=== PATIENT | male | born 1960 | race Caucasian/White ===

== ENCOUNTER 2018-12-30 10:08 | Outpatient (CLI) | payer BC ==
--- NOTE | 2018-12-30 10:53 | RAD ---
FOUR VIEWS LUMBAR SPINE: HISTORY: Radiculopathy. Spinal stenosis. FINDINGS: AP, weight-bearing lateral neutral, weight-bearing flexion, weight-bearing extension demonstrate 5 larry mbar-type vertebrae. Lumbar spine vertebral body height is maintained. No fracture. Disc space heights are preserved. Spondylolisthesis: L4 upon L5: Neutral position: 1.7 mm of anterolisthesis; flexion 5 mm of anterolisthesis, extension 2.3 mm of ant erolisthesis. No associated pars defects. IMPRESSION: Grade 1 anterolisthesis of L4 upon L5 worsening with flexion. Transcribed Date/Time: 12/30/2018 11:01 AM
--- NOTE | 2018-12-30 11:56 | MRI ---
MR the lumbar spine without contrast: 12/30/2018 History: Low back pain with bilateral leg numbness and pain COMPARISON: None. TECHNIQUE: Multiplanar multisequence MR images were obtained of lumbar spine without IV contrast FINDINGS: On the basis of 5 lumbar type vertebral bodies, conus medullaris terminates at theT12 level. Sagittal STIR imaging demonstrates no focal area of osseous marrow edema. T12-L1:Intervertebral disc height and signal intensity within normal limits with no significant centr al canal or neural foraminal stenosis. L1-2:Intervertebral disc height and signal intensity within normal limits with no significant central canal or neural foraminal stenosis. L2-3:Mild bilateral facet hypertrophy. Intervertebral disc height and signal intensity within normal limits with no significant central canal or neural foraminal stenosis. L3-4:Intervertebral disc height and signal intensity within normal limits. No significant central can al or neural foraminal stenosis. L4-5:There is disc space narrowing and disc desiccation with mild disc bulge and small central disc p rotrusion. There is moderate bilateral facet hypertrophy with hypertrophy of the ligamentum flavum. This causes a moderate degree of central canal stenosis. Anterolisthesis at L4-5 noted measuring 4 mm . Mild neural foraminal stenosis on the right. No left neural foraminal stenosis. L5-S1:There is disc space narrowing with disc desiccation and mild disc bulge. Mild associated centra l canal stenosis. Mild bilateral facet hypertrophy with no significant neural foraminal stenosis. Image retroperitoneal structures demonstrateno acute findings. IMPRESSION: Multilevel lower lumbar spine degenerative change, most prominent at the L4-5 level.
== END 2018-12-30 10:09 | disposition home or self-care (01) ==
LOC: BICMRI 10:08
PROVIDERS: ATTEND Physician Assistant Surgical
DX: M47.26 Other spondylosis with radiculopathy, lumbar region (principal); M54.5 Low back pain; M48.061 Spinal stenosis, lumbar region without neurogenic claudication; M43.16 Spondylolisthesis, lumbar region
CPT/HCPCS: 72120; 72148

== ENCOUNTER 2019-02-22 08:18 | Day surgery (SDC) | payer BC ==
[2019-02-21 11:56] VITALS: BMI 25.5
[2019-02-22 09:21] LABS: #Lymphocytes 1.3 thou/uL (1.20-3.40); #Monocytes 0.5 thou/uL (0.11-0.59); %Basophils 0.2 % (0.0-1.0); %Eosinophils 0.8 % (0.0-10.0); %Lymphocytes 26.5 % (21.0-51.0); %Monocytes 10.5 % (0.0-10.0); %Neutrophils 61.9 % (42.0-75.0); Hemoglobin 15.7 g/dL (14.0-18.0); Mean Corpuscular HGB CONC 34.8 g/dL (32.0-36.0); Mean Corpuscular Hemoglobin 30.6 pg (27.0-31.0); Mean Corpuscular Volume 88.1 fL (78.0-98.0); Mean Platelet Volume 7.1 fL (7.4-10.4); Platelet Count 196 thou/uL (130-400); RBC Distribution Width 11.4 % (11.5-14.5); Red Blood Cell (RBC) Count 5.12 mill/uL (4.70-6.10); White Blood Cell (WBC) Count 4.9 thou/uL (4.8-10.8)
[2019-02-22] MEDS ORDERED: PROPOFOL 200 MG/20 ML VIAL ONE (09:24)
[2019-02-22] MEDS ORDERED: Glycopyrrolate 0.2 MG/ML 5 ML SYRINGE ONE (09:24)
[2019-02-22] MEDS ORDERED: Lidocaine 1% PF 5 ML VIAL ONE (09:24)
[2019-02-22] MEDS ORDERED: Ondansetron PF 4 MG/2 ML Vial ONE (09:24)
[2019-02-22] MEDS ORDERED: Dexamethasone 20 MG/5 ML VIAL ONE (09:24)
[2019-02-22] MEDS ORDERED: Ketorolac Tromethamine 30 MG/ML VIAL ONE (09:24)
[2019-02-22] MEDS ORDERED: Rocuronium Bromide 10 MG/ML (10ML VIAL) ONE (09:24)
[2019-02-22] MEDS ORDERED: PHENYLEPHRINE-NS 100 MCG/ML 10 ML SYRINGE ONE (09:24)
[2019-02-22 09:30] LABS: Prothrombin Time 12.9 SEC (12.0-14.7)
[2019-02-22 09:31] LABS: PTT 34.2 SEC (22.9-36.1)
[2019-02-22] MEDS ORDERED: Promethazine HCl 25 MG/ML VIAL SLOW IVP PRN ×2 (09:42→13:27)
[2019-02-22] MEDS ORDERED: Promethazine HCl 25 MG/ML VIAL IM PRN ×3 (09:42→19:44)
[2019-02-22] MEDS ORDERED: Ondansetron HCl/PF 4 MG/2 ML Vial IVP PRN ×2 (09:42→13:27)
[2019-02-22 09:54] LABS: Anion Gap 14 mmol/L (10-20); BUN (Urea Nitrogen) 18 mg/dL (8.4-25.7); Calc. Creatinine Clearance 93 mL/min (70-130); Calcium 9.3 mg/dL (7.8-10.44); Carbon Dioxide 24 mmol/L (22-29); Chloride 106 mmol/L (98-107); Estimated GFR-MDRD 66; Glucose 101 mg/dL (70-105); Sodium 140 mmol/L (136-145)
[2019-02-22] MEDS ORDERED: Thrombin 5000 UNITS/5 ML VIAL ONE (10:33)
[2019-02-22] MEDS ORDERED: Fentanyl 100 MCG/2 ML VIAL ONE ×2 (10:51→13:55)
[2019-02-22] MEDS ORDERED: Acetaminophen 325 MG TAB PO PRN (13:14)
[2019-02-22] MEDS ORDERED: Ondansetron PF 4 MG/2 ML Vial IVP PRN (13:14)
[2019-02-22] MEDS ORDERED: traMADol HCl 50 MG TAB PO PRN (13:14)
[2019-02-22] MEDS ORDERED: Fleet Enema 133 ML BOT PR PRN (13:14)
[2019-02-22] MEDS ORDERED: Milk Of Magnesia 30 ML UDCUP PO PRN (13:14)
[2019-02-22] MEDS ORDERED: Mag-Al 1200 mg/1200 mg/30 ML UDCUP PO PRN (13:14)
[2019-02-22] MEDS ORDERED: Bisacodyl 10 MG SUPP PR PRN (13:14)
[2019-02-22] MEDS ORDERED: tiZANidine HCl 4 MG TAB PO PRN (13:14)
[2019-02-22] MEDS ORDERED: HYDROmorphone 2 MG/ML VIAL ONE (13:18)
[2019-02-22] MEDS ORDERED: Morphine Sulfate 2 MG/ML SYRINGE SLOW IVP PRN (13:27)
[2019-02-22] MEDS ORDERED: PACU-Morphine 4MG/ML VIAL SLOW IVP PRN (13:27)
[2019-02-22] MEDS ORDERED: HYDROmorphone 2 MG/ML VIAL SLOW IVP PRN (13:27)
[2019-02-22] MEDS: Sodium Chloride 0.9% 1,000 ML IV SCH (16:01)
[2019-02-22] MEDS: Morphine 2 MG/ML SYRINGE SLOW IVP PRN ×2 (16:48→20:11)
[2019-02-22] MEDS: HYDROcodone/Acetaminophen 7.5/325 mg Tablet PO PRN (16:49)
[2019-02-22] MEDS: CEFAZOLIN 2 GM in Premix Bag 1 BAG IVPB SCH (17:33)
[2019-02-22] MEDS ORDERED: Promethazine HCl 12.5 MG in Sodium Chloride 0.9% 50 ML IVPB PRN (19:39)
[2019-02-22] MEDS ORDERED: Promethazine 25 MG TAB PO PRN (19:44)
[2019-02-23] MEDS: CEFAZOLIN 2 GM in Premix Bag 1 BAG IVPB SCH (01:07)
[2019-02-23] MEDS: Sodium Chloride 0.9% 1,000 ML IV SCH (01:07)
[2019-02-23] MEDS: Morphine 2 MG/ML SYRINGE SLOW IVP PRN (04:15)
--- NOTE | 2019-02-23 08:31 | OP ---
DATE OF PROCEDURE: 02/22/2019 LOCATION: OR 12. MACHINE STRAP BUCKLER: Whit Almaraz PA-C. PREPROCEDURE DIAGNOSIS: Lumbar stenosis with low back and leg pain. POSTPROCEDURE DIAGNOSIS: Lumbar stenosis with low back and leg pain. PROCEDURES PERFORMED: L4-L5 and L5-S1 laminectomies, partial facetectomies, and foraminotomies of L4-L5 and L5-S1 nerve roots. DESCRIPTION OF PROCEDURE: After informed consent was obtained from the patient, the patient was brought to the OR. Proper patient, pause, and identification were carried out. He was placed under excellent endotracheal anesthesia and positioned prone on the OR table. All appropriate points were padded. We identified the L4, L5, S1 dorsal spines and lamina. A linear david was made over this area. This area was sterilely cleansed, prepared, and draped. Proper patient, pause, and identification were carried out. The wound was then opened with a combination of sharp, monopolar, and blunt dissection. The L4, L5, and S1 dorsal spines and lamina were exposed. Localization film confirmed our area of interest. We then performed L4, L5, S1 laminectomies partial facetectomies, foraminotomies with excellent decompression of common dural tube and nerve roots. Hemostasis was maximized throughout. Copious irrigation occurred. There was no spinal fluid leak. The wound was then closed in anatomic layers following sprinkling of vancomycin powder. The patient emerged from anesthesia. Job ID: [id number]
[2019-02-23] MEDS ORDERED: Atorvastatin Calcium 20 MG TAB PO SCH (09:00)
[2019-02-23] MEDS: HYDROcodone/Acetaminophen 7.5/325 mg Tablet PO PRN (09:04)
--- NOTE | 2019-02-23 11:09 | PRG ---
DATE OF SERVICE: 02/23/2019 Mr. Mcgraw is doing well postoperative day 1 from lumbar decompression. He has had resolution in his leg pain and paresthesias, just trace amount in the L5 dermatome affecting the great toe. He is ambulating, voiding on his own, and tolerating orals. Plan for dismissal. Job ID: [id number]
[2019-02-23 11:52] VITALS: BP 97/53; TEMP 99
== END 2019-02-23 12:57 | disposition home or self-care (01) ==
LOC: SDC 08:18 → SURG B 15:47 → SDC 02-23 12:57
PROVIDERS: ATTEND Surgery
PROC: 01NB0ZZ Release Lumbar Nerve, Open Approach (ICD-10-PCS; principal; 2019-02-22)
DX: M48.062 Spinal stenosis, lumbar region with neurogenic claudication (principal); M54.16 Radiculopathy, lumbar region; Z88.5 Allergy status to narcotic agent
CPT/HCPCS: 36415; 76000; 80048; 85025; 85610; 85730; J0690; J1100; J1170; J1885; J2001; J2270; J2405; J2550; J2704; J3010; J3370; J3490

== ENCOUNTER 2020-05-09 14:44 | Outpatient (CLI) | payer BC | END 2020-05-09 14:45 | disposition home or self-care (01) | LOC: BICRAD 14:44 | PROVIDERS: ATTEND Family Medicine | DX: M54.42 Lumbago with sciatica, left side (principal); M89.38 Hypertrophy of bone, other site; Z98.890 Other specified postprocedural states | CPT/HCPCS: 72100 ==

== ENCOUNTER 2020-05-18 21:51 | Emergency (ER) | payer BC ==
[~2020-05-18 21:51] MED LIST: Iopamidol-370 76% 500 ML 1 ML ONE
[2020-05-18 22:25] LABS: #Eosinphils 0.1 thou/uL (0.0-0.7); #Lymphocytes 1.2 thou/uL (1.20-3.40); #Neutrophils 6.7 thou/uL (1.40-6.50); %Basophils 0.3 % (0.0-1.0); %Eosinophils 1.1 % (0.0-10.0); %Lymphocytes 13.3 % (21.0-51.0); %Neutrophils 74.3 % (42.0-75.0); Hemoglobin 14.7 g/dL (14.0-18.0); Mean Corpuscular HGB CONC 33.7 g/dL (32.0-36.0); Mean Corpuscular Hemoglobin 30.1 pg (27.0-31.0); Mean Corpuscular Volume 89.2 fL (78.0-98.0); Mean Platelet Volume 7.2 fL (7.4-10.4); Platelet Count 189 thou/uL (130-400); RBC Distribution Width 11.2 % (11.5-14.5)
[2020-05-18 22:36] LABS: Bacteria/HPF None Seen HPF (None Seen); Bilirubin Negative (Negative); Blood, Urine 1+ (Negative); Clarity Clear (Clear); Glucose, Urine (Dipstick) Normal (Negative); Ketone, Urine Negative (Negative); Leukocyte Negative Leu/uL (Negative); Nitrite Negative (Negative); Protein, Urine (Dipstick) 30 mg/dL (Neg-Trace); RBC/HPF 0-3 HPF (0-3); Specific Gravity, Urine 1.014 (1.002-1.036); Squamous Epithelial None Seen HPF (0-3); Urobilinogen Normal mg/dL (Less than 2); WBC/HPF 0-3 HPF (0-3)
[2020-05-18 22:49] LABS: ALT (SGPT) 14 U/L (8-55); AST (SGOT) 10 U/L (5-34); Alkaline Phosphatase 64 U/L (40-110); Anion Gap 15 mmol/L (10-20); BUN (Urea Nitrogen) 21 mg/dL (8.4-25.7); Bilirubin, Total 0.9 mg/dL (0.2-1.2); Calc. Creatinine Clearance 0 mL/min (70-130); Calcium 8.8 mg/dL (7.8-10.44); Carbon Dioxide 23 mmol/L (23-31); Chloride 101 mmol/L (98-107); Globulin 2.8 g/dL (2.4-3.5); Glucose 119 mg/dL (80-115); Lipase 38 U/L (8-78); Potassium 3.5 mmol/L (3.5-5.1); Protein, Total 6.8 g/dL (5.8-8.1); Sodium 135 mmol/L (136-145)
[2020-05-18] MEDS ORDERED: Ketorolac Tromethamine 30 MG/ML VIAL ONE (23:24)
[2020-05-18] MEDS ORDERED: Ondansetron PF 4 MG/2 ML Vial ONE (23:24)
== END 2020-05-19 01:02 | disposition home or self-care (01) ==
LOC: ERS 21:51
DX: N20.0 Calculus of kidney (principal); E78.00 Pure hypercholesterolemia, unspecified; R11.0 Nausea; Z79.899 Other long term (current) drug therapy
CPT/HCPCS: 36415; 74177; 80053; 81003; 81015; 83690; 85025; 96374; 96375; J1885; J2405; Q9967

== ENCOUNTER 2020-06-28 12:34 | Outpatient (CLI) | payer BC | END 2020-06-28 12:35 | disposition home or self-care (01) | LOC: TBSIIMAG 12:34 | PROVIDERS: ATTEND Surgery | DX: M54.16 Radiculopathy, lumbar region (principal); M48.061 Spinal stenosis, lumbar region without neurogenic claudication; Z98.890 Other specified postprocedural states | CPT/HCPCS: 72148 ==

== ENCOUNTER 2021-10-22 06:53 | Outpatient (CLI) | payer BC | END 2021-10-22 06:54 | disposition home or self-care (01) | LOC: BICULT 06:53 | PROVIDERS: ATTEND Internal Medicine Nephrology | DX: N18.2 Chronic kidney disease, stage 2 (mild) (principal) | CPT/HCPCS: 76770 ==

== ENCOUNTER 2024-01-28 15:45 | Outpatient (CLI) | payer BC | END 2024-01-28 15:46 | disposition home or self-care (01) | LOC: BICRAD 15:45 | PROVIDERS: ATTEND Nurse Practitioner Family | DX: M54.50 Low back pain, unspecified (principal) | CPT/HCPCS: 72120 ==